=== PATIENT | male | born 1980 | race Caucasian/White ===

== ENCOUNTER 2017-02-22 08:14 | Emergency (ER) | payer SELFPAY ==
[~2017-02-22] VITALS: Ht 177.8 cm; Wt 77.1 kg
[~2017-02-22 08:14] MED LIST: 'PARAFON FORTE500 M1 PO; AMOXICILLIN500 MG PO; ANAPROX DS550 MG PO; CYCLOBENZAPRINE10 MG PO; CYCLOBENZAPRINE5 M3 PO; FLONASE 0.05% 121 EA NAS; HYDROCODONE BIT1 T11 PO; Motrin,Rufen800 MG PO; NAPROSYN500 MG PO; NORCO 5-325 TA1 EACH PO; PREDNICOT20 MG PO; ROBITUSSIN AC 110 ML PO; ULTRAM50 MG PO; ZITHROMAX250 MG PO; ZYRTEC10 MG PO
[2017-02-22] MEDS ORDERED: MEDROL DOSEPAK4 MG PO (10:12)
== END 2017-02-22 10:23 | disposition home or self-care (01) ==
LOC: ED 08:14
DX: S49.92XA Unspecified injury of left shoulder and upper arm, initial encounter (principal); X58.XXXA Exposure to other specified factors, initial encounter; Y93.9 Activity, unspecified; Y92.9 Unspecified place or not applicable; Y99.9 Unspecified external cause status

== ENCOUNTER 2017-10-12 09:14 | Emergency (ER) | payer OTHER ==
[~2017-10-12] VITALS: Wt 77.1 kg
[~2017-10-12 09:14] MED LIST changes: +MEDROL DOSEPAK4 MG PO
[2017-10-12] MEDS ORDERED: NAPROSYN500 MG PO (09:32)
== END 2017-10-12 09:48 | disposition home or self-care (01) ==
LOC: ED 09:14
DX: K08.89 Other specified disorders of teeth and supporting structures (principal); R03.0 Elevated blood-pressure reading, without diagnosis of hypertension; Z79.899 Other long term (current) drug therapy